=== PATIENT | female | born 1940 | race Caucasian/White ===

== ENCOUNTER 2019-11-22 07:48 | Day surgery (SDC) | payer MEDICARE, BC ==
[~2019-11-22] VITALS: Ht 154.9 cm; Wt 71.4 kg
[2019-11-22] MEDS ORDERED: SODIUM CHLORIDE 0.9% 1,000 ML IV SCH (08:10)
[2019-11-22] MEDS ORDERED: SIMV40TA20 PO (08:19)
[2019-11-22] MEDS ORDERED: ASPI81TA45 PO (08:19)
[2019-11-22] MEDS ORDERED: CHOL10003 PO (08:19)
[2019-11-22] MEDS ORDERED: UBID100C41 PO (08:19)
[2019-11-22] MEDS ORDERED: OMEG1CAP23 PO (08:19)
[2019-11-22 08:26] VITALS: BP 154/85
[2019-11-22] MEDS ORDERED: MIDAZOLAM 1 MG/ML, 2ML ONE (09:44)
[2019-11-22] MEDS ORDERED: ADENOSINE 6 MG/2 ML ONE (09:44)
[2019-11-22] MEDS ORDERED: ISOPROTERENOL 0.2MG/ML, 5ML ONE (09:44)
[2019-11-22] MEDS ORDERED: FENTANYL PF 100 MCG/2ML ONE (09:44)
[2019-11-22] MEDS ORDERED: LIDOCAINE 1%, 20ML ONE (09:44)
[2019-11-22] MEDS ORDERED: SIMVASTATIN 40 MG TABLET PO SCH (21:00)
[2019-11-22] MEDS ORDERED: ASPIRIN 81 MG TABLET EC PO SCH (21:00)
[2019-11-23] MEDS ORDERED: CHOLECALCIFEROL 1,000 UNIT TABLET PO SCH (09:00)
[2019-11-23] MEDS ORDERED: OMEGA-3/FISH OIL CAPSULE PO SCH (09:00)
[2019-11-23] MEDS ORDERED: TEMPLATE NON-FORMULARY MED. (Ubidecarenone** (Co Q-10**) 100 MG) PO SCH (09:00)
== END 2019-11-22 15:12 | disposition home or self-care (01) ==
LOC: CACL 07:48
PROVIDERS: ATTEND Internal Medicine Cardiovascular Disease
DX: I47.1 Supraventricular tachycardia (principal); Z88.1 Allergy status to other antibiotic agents; Z88.2 Allergy status to sulfonamides; Z79.82 Long term (current) use of aspirin; Z79.899 Other long term (current) drug therapy
CPT/HCPCS: 93613; 93621; 93623; 93653; C1730; C1894; C2630; J0153; J2250; J3010